=== PATIENT | male | born 1940 | race Caucasian/White ===

== ENCOUNTER 2022-09-10 17:34 | Inpatient (IN) | payer OTHER ==
[~2022-09-10] VITALS: Ht 172.7 cm; Wt 70.3 kg
[2022-09-10] MEDS ORDERED: SODIUM CHLORIDE 0.9% 1,000 ML IV ONE (18:45)
[2022-09-10 20:09] LABS: Albumin 2.6 g/dL (3.4-5.0); Potassium 3.6 mmol/L (3.5-5.1)
[2022-09-10 20:12] LABS: BUN/Creatinine Ratio 31.3 (10.0-20.0)
[2022-09-10 20:14] LABS: Bilirubin, Total 0.5 mg/dL (0.2-1.0)
[2022-09-10 20:39] LABS: Basophils # (auto) 0 10 ^3/uL (0-0.2); Basophils % (auto) 0.1 % (0.0-2.0); Eosinophils # (auto) 0 10 ^3/uL (0-0.8); Eosinophils % (auto) 0.2 % (0.0-7.0); Hematocrit 36.7 % (41.0-53.0); Hemoglobin 12.3 g/dL (13.5-17.5); Lymphocytes # (auto) 0.5 10 ^3/uL (0.4-5.4); Lymphocytes % (auto) 5.5 % (10.0-50.0); Mean Corpuscular Hemoglobin 28.5 pg (28.0-32.0); Mean Corpuscular Hgb Conc. 33.6 g/dL (32.0-36.0); Mean Corpuscular Volume 84.6 fL (80.0-100.0); Monocytes # (auto) 0.5 10 ^3/uL (0-1.3); Monocytes % (auto) 5.9 % (0.0-12.0); Neutrophils # (auto) 7.9 10 ^3/uL (1.6-8.6); Neutrophils % (auto) 88.3 % (37.0-80.0); Nucleated Red Blood Cells % 0.6 %; Red Blood Cells 4.33 10^6/uL (4.5-5.90); Red Cell Distribution Width 16.4 % (11.8-14.3); White Blood Cell 8.9 10^3/uL (4.4-10.8)
[2022-09-10 20:45] LABS: INR 1.08 (0.9-1.15); Partial Thromboplastin Time 27.3 sec (24.6-33.4)
[2022-09-10] MEDS ORDERED: DEXTROSE (50%) 50ML SYRG IV PRN (23:30)
[2022-09-10] MEDS ORDERED: ACETAMINOPHEN 325 MG TAB PO PRN (23:30)
[2022-09-10] MEDS ORDERED: ALBUMIN 25% 100 ML IV ONE (23:30)
[2022-09-10] MEDS ORDERED: NITROGLYCERIN 0.4 MG SL TAB SL PRN (23:30)
[2022-09-10] MEDS ORDERED: ONDANSETRON HCL 4 MG/2 ML VIAL IV PRN (23:30)
[2022-09-10] MEDS ORDERED: MORPHINE SULFATE INJ 2 MG/ml SYRG IV PRN (23:30)
[2022-09-10] MEDS ORDERED: DOCUSATE SOD 100 MG CAP PO PRN (23:30)
[2022-09-10] MEDS ORDERED: HYDROcodone-ACET 5/325MG TAB PO PRN (23:30)
[2022-09-10] MEDS ORDERED: AZITHROMYCIN 500MG/ 250ML 250 ML IV ONE (23:45)
[2022-09-11] MEDS: D5W/LACTATED RINGERS 1,000 ML IV SCH ×2 (02:32→13:23)
[2022-09-11 05:20] LABS: Basophils # (auto) 0 10 ^3/uL (0-0.2); Basophils % (auto) 0.1 % (0.0-2.0); Eosinophils # (auto) 0 10 ^3/uL (0-0.8); Eosinophils % (auto) 0.6 % (0.0-7.0); Hematocrit 33.4 % (41.0-53.0); Hemoglobin 11.8 g/dL (13.5-17.5); Lymphocytes # (auto) 0.7 10 ^3/uL (0.4-5.4); Lymphocytes % (auto) 8.2 % (10.0-50.0); Mean Corpuscular Hemoglobin 29.6 pg (28.0-32.0); Mean Corpuscular Hgb Conc. 35.4 g/dL (32.0-36.0); Mean Corpuscular Volume 83.5 fL (80.0-100.0); Monocytes # (auto) 0.6 10 ^3/uL (0-1.3); Monocytes % (auto) 7.1 % (0.0-12.0); Neutrophils # (auto) 6.7 10 ^3/uL (1.6-8.6); Nucleated Red Blood Cells % 0.5 %; Red Cell Distribution Width 16.3 % (11.8-14.3)
[2022-09-11 05:36] LABS: Potassium 3.1 mmol/L (3.5-5.1)
[2022-09-11 05:50] LABS: Albumin 2.7 g/dL (3.4-5.0); BUN/Creatinine Ratio 38.4 (10.0-20.0); Bilirubin, Total 0.8 mg/dL (0.2-1.0); Calcium 8.9 mg/dL (8.5-10.1); Total Protein 5.8 g/dL (6.4-8.2)
[2022-09-11] MEDS: InsuLIN REG 1unit/0.01ml Soln (100units/ml) SC SCH ×3 (07:00→17:00)
[2022-09-11] MEDS: ACCU-CHEK COMFORT CURVE STRIP VI SCH ×3 (07:20→17:28)
[2022-09-11] MEDS ORDERED: HEPARIN SODIUM (PORCINE) 5000 UNITS/ML 1ML VIAL SC SCH (10:00)
[2022-09-11] MEDS ORDERED: FAMOTIDINE (10MG/ML) 2ML VL IV SCH (10:00)
[2022-09-11] MEDS ORDERED: AZITHROMYCIN 500MG/ 250ML 250 ML IV SCH (10:00)
[2022-09-11] MEDS ORDERED: LEVO500T31 PO (12:51)
[2022-09-11] MEDS: Ensure HIGH Protein Chocolate 8oz Bottle PO SCH ×2 (13:23→18:06)
[2022-09-11] MEDS ORDERED: DEXTROSE 10% 250 ML IV ONE (17:21)
[2022-09-11 19:32] VITALS: BP 156/88
== END 2022-09-11 21:20 | disposition hospice, home (50) | DRG 640 ==
LOC: EDBD 17:34 → ER 17:34 → TELE 23:21
PROVIDERS: ADMIT Nurse Practitioner Family; ATTEND Nurse Practitioner Family
DX: E86.0 Dehydration (principal); E43 Unspecified severe protein-calorie malnutrition; N17.0 Acute kidney failure with tubular necrosis; G93.41 Metabolic encephalopathy; J44.0 Chronic obstructive pulmonary disease with (acute) lower respiratory infection; E87.0 Hyperosmolality and hypernatremia; E16.2 Hypoglycemia, unspecified; Z20.822 Contact with and (suspected) exposure to COVID-19; R73.9 Hyperglycemia, unspecified; F03.90 Unspecified dementia, unspecified severity, without behavioral disturbance, psychotic disturbance, mood disturbance, and anxiety; I10 Essential (primary) hypertension; R62.7 Adult failure to thrive; Z85.46 Personal history of malignant neoplasm of prostate; Z68.23 Body mass index [BMI] 23.0-23.9, adult; Z51.5 Encounter for palliative care
CPT/HCPCS: 36415; 70450; 71045; 80053; 82962; 83880; 84484; 85025; 85610; 85730; 87426; 93005; 96361; 96365; G0378; J1815; J3490; P9047